=== PATIENT | male | born 1995 | race Caucasian/White ===

== ENCOUNTER 2017-02-26 20:47 | Emergency (ER) | payer OTHER ==
[2017-02-26 20:55] VITALS: BP 127/72; PULSE 82; RESP 16; TEMP 98.4; O2SAT 97
[2017-02-26] MEDS ORDERED: SKIN ADHESIVE (DERMABOND) 1 EACH TP ONE (21:47)
--- NOTE | 2017-02-26 21:56 | EDPHY ---
H & P Stated Complaint: l wrist lac vs broken glass HPI/ROS: CHIEF COMPLAINT: Laceration HISTORY OF PRESENT ILLNESS: Patient reports lifting a glass beer mug up to a shelf while at work this evening. The glass broke any sustained laceration to the left anterior wrist and superficially to the right middle and ring fingers. Minimally painful. Bleeding was stopped with pressure. No difficulty flexing or extending the fingers. No difficulty flexing or extending the wrist. No numbness or tingling. Denies that this was intentional. No other associated complaints or modifying factors TIME OF INJURY: Less than 2 hours prior to arrival TETANUS STATUS: Current less than 4 years ago REVIEW OF SYSTEMS: Ten systems reviewed and are negative unless otherwise noted in the HPI EXAMINATION General Appearance: Alert, no distress Head: normocephalic, atraumatic Cardiovascular: Pulses normal throughout. Symmetric radial pulses 2+. Brisk cap refill Neurological: A&O, sensory symmetric, strength symmetric. Good strength of the interossei. No wrist drop. Skin: Warm and dry, no rash. Three lacerations including 1.: Left wrist, anterior 1.25 cm, superficial. No exposure of the flexor tendons. No pulsatile blood flow. No foreign body. 2.: Right middle finger, distal phalanx, volar, 1 cm, superficial. No foreign body. No exposure of the flexor tendon. 3.: Right ring finger, volar, distal phalanx, superficial, 1 cm. No foreign body. No exposure of the flexor tendon. Neurovascular intact distal to all areas of laceration Extremities: Minimal tenderness of the lacerations of the left wrist and right fingers. Full range of motion all areas. Neurovascular intact distally. No tendon injury. DIFFERENTIAL DIAGNOSES: Including but not limited to superficial laceration, complex laceration, laceration with tendon injury, abrasion, foreign body MDM: 9:30 p.m. Superficial laceration of the left volar wrist and superficial lacerations of the right middle and ring fingers over the distal phalanx, volar. No foreign bodies by inspection. X-ray order the wrist. Tetanus up-to-date. Area has been anesthetized. Proceed with irrigation. 9:52 p.m. Superficial left wrist laceration that has been closed. He is neurovascular intact with no tendon injury. Superficial lacerations of the right middle and ring fingers that have been irrigated and covered with Dermabond skin adhesive. Discharged home stable condition. Follow up with worker's compensation [facility] for definitive care. 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 PROCEDURE: Laceration repair, 1. Consent: Verbal Location: Left wrist, volar Length of repair: 1.25 cm Complexity: Simple Layer involvement: Single Anesthesia: Local, 1% lidocaine plain. 5 mL Irrigation: Extensive Debridement: None Procedure description: Following good anesthesia, the wound was copiously irrigated. Wound bed was explored and there is no foreign body noted. Wound borders were approximated well with good hemostasis. Tolerated well without complication. Suture/Staple material: 5-0 Prolene, 2 simple interrupted sutures Wound care: Routine as discussed Suture/Staple removal: 7-10 Days PROCEDURE: Laceration repair, 2. Consent: Verbal Location: Right middle finger, distal phalanx, volar Length of repair: 1 cm superficial Complexity: Simple Layer involvement: Single Anesthesia: None Irrigation: Extensive Debridement: None Procedure description: Following good anesthesia, the wound was copiously irrigated. Wound bed was explored and there is no foreign body noted. Wound borders were approximated well with good hemostasis. Tolerated well without complication. Suture/Staple material: Dermabond skin adhesive Wound care: Routine as discussed PROCEDURE: Laceration repair, 3. Consent: Verbal Location: Right ring finger, distal phalanx, volar Length of repair: 1 cm superficial Complexity: Simple Layer involvement: Single Anesthesia: None Irrigation: Extensive Debridement: None Procedure description: Following good anesthesia, the wound was copiously irrigated. Wound bed was explored and there is no foreign body noted. Wound borders were approximated well with good hemostasis. Tolerated well without complication. Suture/Staple material: Dermabond skin adhesive Wound care: Routine as discussed SUTURE STAPLE REMOVAL: 7-10 days for left wrist sutures ED Precautions: Worsening pain. Erythema, edema, cyanosis, pallor, paresthesia or anesthesia. SUPERVISION: This patient was independently evaluated without direct examination by the attending physician. Case was discussed with attending physician. Source: Patient Exam Limitations: No limitations - Personal History Current Tetanus/Diphtheria Vaccine: Yes - Medical/Surgical History Hx Asthma: No Hx Chronic Respiratory Disease: No Hx Diabetes: No Hx Cardiac Disease: No Hx Renal Disease: No Hx Cirrhosis: No Hx Alcoholism: No Hx HIV/AIDS: No Hx Splenectomy or Spleen Trauma: No Other PMH: panic attacks, psoriatic arthritis - Social History Smoking Status: Current some day smoker Constitutional: Initial Vital Signs Temperature (C) 98.4 F 02/26/17 20:53 Heart Rate 82 02/26/17 20:53 Respiratory Rate 16 02/26/17 20:53 Blood Pressure 127/72 H 02/26/17 20:53 O2 Sat (%) 97 02/26/17 20:53 O2 Delivery Mode Room Air Allergies/Adverse Reactions: No Known Allergies Allergy (Unverified 02/26/17 20:55) Home Medications: Medication Instructions Recorded Etanercept [Enbrel] 50 mg SQ 02/26/17 Meloxicam 15 mg PO 02/26/17 Medical Decision Making - Diagnostics Imaging: I viewed and interpreted images myself Departure - Departure Disposition: Home, Routine, Self-Care Clinical Impression: Laceration of wrist Qualifiers: Encounter type: initial encounter Laterality: left Qualified Code(s): S61.512A - Laceration without foreign body of left wrist, initial encounter Laceration of finger Qualifiers: Encounter type: initial encounter Finger: ring finger Damage to nail status: without damage Foreign body presence: with foreign body Laterality: right Qualified Code(s): S61.224A - Laceration with foreign body of right ring finger without damage to nail, initial encounter Laceration of right middle finger Qualifiers: Encounter type: initial encounter Damage to nail status: without damage Foreign body presence: without foreign body Qualified Code(s): S61.212A - Laceration without foreign body of right middle finger without damage to nail, initial encounter Condition: Good Instructions: Care For Your Stitches (ED), Laceration (ED), Skin Adhesive Care (ED) Additional Instructions: 1. Daily wound care as discussed 2. Contact your rip machine operator as discussed 3. Follow up with worker's compensation Clinic as instructed by your employer Referrals: Lucita Odell DO [Doctor of Osteopathy] - As per Instructions Stand Alone Forms: Work Comp Follow Up
== END 2017-02-26 21:51 | disposition home or self-care (01) ==
PROC: 0HQEXZZ Repair Left Lower Arm Skin, External Approach (ICD-10-PCS; principal; 2017-02-26)
PROC: 0HQFXZZ Repair Right Hand Skin, External Approach (ICD-10-PCS; principal; 2017-02-26)
DX: S61.512A Laceration without foreign body of left wrist, initial encounter (principal); S61.224A Laceration with foreign body of right ring finger without damage to nail, initial encounter; S61.212A Laceration without foreign body of right middle finger without damage to nail, initial encounter; F17.200 Nicotine dependence, unspecified, uncomplicated; W25.XXXA Contact with sharp glass, initial encounter

== ENCOUNTER 2017-05-06 12:04 | Emergency (ER) | payer OTHER ==
--- NOTE | 2017-05-06 12:17 | CPEKG ---
Heart Rate: 75 RR Interval: 800 P-R Interval: 152 QRSD Interval: 86 QT Interval: 380 QTC Interval: 425 P Arthur: 75 QRS Arthur: 85 T Wave Arthur: 66 EKG Severity - OTHERWISE NORMAL ECG - EKG Impression: SINUS ARRHYTHMIA, RATE 64-89 Electronically Signed By: Butch Baum 06-May-2017 15:00:33
--- NOTE | 2017-05-06 12:17 | CPEKG ---
Heart Rate: 75 RR Interval: 800 P-R Interval: 152 QRSD Interval: 86 QT Interval: 380 QTC Interval: 425 P [place]: 75 QRS [place]: 85 T Wave [place]: 66 EKG Severity - OTHERWISE NORMAL ECG - EKG Impression: SINUS ARRHYTHMIA, RATE 64-89 Electronically Signed By: Butch Baum 06-May-2017 15:00:33
[2017-05-06 13:06] LABS: PLATELET COUNT 325 10^3/uL (150-400)
--- NOTE | 2017-05-06 14:10 | EDPHY ---
H & P Smoking Status: Former smoker Time Seen by Provider: 05/06/17 12:36 HPI/ROS: CHIEF COMPLAINT: Chest pain HISTORY OF PRESENT ILLNESS: 21-year-old male presents to the emergency department with left anterior chest pain. Pain is been a constant dull ache for the last 3 weeks which becomes more sharp in intensity when he does exertional activities. He does not feel short of breath. He denies pleuritic chest pain. No calf pain or swelling. No recent travel. He has never had this pain in the past. He has occasionally had tingling in his hands and feet as well. Has a strong family history on his father's side of coronary artery disease. His father of myocardial infarction at age 38. His paternal uncle also of myocardial infarction at age 41. Patient is a nonsmoker. He has no history of substance abuse. REVIEW OF SYSTEMS: Constitutional: No fever, no chills. Eyes: No double or blurry vision. ENT: No sore throat. Respiratory: No cough, no shortness of breath. Cardiac: chest pain. Gastrointestinal: No abdominal pain, vomiting or diarrhea. Genitourinary: No dysuria. Musculoskeletal: No neck or back pain. Skin: No rashes. Neurological: No headache. (SanazKamilla M) Past Medical/Surgical History: Negative (Sanaz,Kamilla M) Social History: Single (Kamilla Yo M) Physical Exam: General Appearance: Alert, no distress. Vital signs are stable. Eyes: Pupils equal and round. Extraocular motions are all intact. ENT: Mouth: Mucous membranes moist. Respiratory: No wheezing, rhonchi, or rales, lungs are clear to auscultation. Mild pain with palpation to the left anterior aspect of the chest wall just above the left nipple. No palpable crepitus or other bony abnormality. Cardiovascular: Regular rate and rhythm. Gastrointestinal: Abdomen is soft and nontender, no masses, no rebound or guarding, bowel sounds normal. Neurological: Alert and oriented x 3, cranial nerves II through XII grossly intact Skin: Warm and dry, no rashes. Musculoskeletal: Nontender to palpate along the cervical, thoracic or lumbar spine. Neck is supple. Extremities: Full range of motion and no peripheral edema. Psychiatric: Patient is oriented X 3, there is no agitation. (Sanaz,Kamilla M) Constitutional: Initial Vital Signs Temperature (C) 36.5 C 05/06/17 12:05 Heart Rate 84 05/06/17 12:05 Respiratory Rate 16 05/06/17 12:05 Blood Pressure 122/93 H 05/06/17 12:05 O2 Sat (%) 96 05/06/17 12:05 O2 Delivery Mode Room Air Allergies/Adverse Reactions: No Known Allergies Allergy (Unverified 05/06/17 12:08) Home Medications: Medication Instructions Recorded Etanercept [Enbrel] 50 mg SQ 02/26/17 Medical Decision Making - Diagnostics Imaging: I viewed and interpreted images myself - Diagnostics EKG Interpretation: 12-lead EKG interpreted by me; official reading is in trace master. My interpretation is sinus rhythm rate 75 with no ischemic changes. (Butch Baum) Imaging Results: Imaging Impressions Chest X-Ray 05/06/17 12:58 Impression: Hyperaeration, which can be seen with asthma. Otherwise, no evidence for acute cardiopulmonary abnormality. ED Course/Re-evaluation: 21-year-old male presents to the emergency department with chest pain. EKG was unremarkable. Troponin and D-dimer were negative. Laboratory studies were all unremarkable. Case was discussed with Dr. Butch Baum, secondary supervising physician, who did not directly evaluate the patient but agrees with treatment and plan. Chest x-ray was unremarkable. Patient was encouraged to have close follow-up with Cardiology as an outpatient. I do not think further imaging studies are indicated emergency department today. Encouraged her to take anti-inflammatories. He return if he has any recurring chest pain or if he feels worse in any way. (Kamilla Yo) Differential Diagnosis: Chest pain including but not limited to myocardial ischemia, pulmonary embolus, chest wall pain, pleural inflammation and pulmonary infectious causes. (Kamilla Yo) - Data Points Laboratory Results: Laboratory Results 05/06/17 12:40 05/06/17 12:40 05/06/17 05/06/17 05/06/17 12:40 12:40 12:40 WBC 5.02 10^3/uL 10^3/uL (3.80-9.50) RBC 6.45 10^6/uL H 10^6/uL (4.40-6.38) Hgb 19.5 g/dL H g/dL (13.7-17.5) Hct 53.1 % H % (40.0-51.0) MCV 82.3 fL fL (81.5-99.8) MCH 30.2 pg pg (27.9-34.1) MCHC 36.7 g/dL g/dL (32.4-36.7) RDW 12.1 % % (11.5-15.2) Plt Count 325 10^3/uL 10^3/uL (150-400) MPV 8.7 fL fL (8.7-11.7) Neut % (Auto) 47.6 % % (39.3-74.2) Lymph % (Auto) 41.8 % % (15.0-45.0) [place] % (Auto) 8.0 % % (4.5-13.0) Eos % (Auto) 1.8 % % (0.6-7.6) Baso % (Auto) 0.6 % % (0.3-1.7) Nucleat RBC Rel Count 0.0 % % (0.0-0.2) Absolute Neuts (auto) 2.39 10^3/uL 10^3/uL (1.70-6.50) Absolute Lymphs (auto) 2.10 10^3/uL 10^3/uL (1.00-3.00) Absolute Monos (auto) 0.40 10^3/uL 10^3/uL (0.30-0.80) Absolute Eos (auto) 0.09 10^3/uL 10^3/uL (0.03-0.40) Absolute Basos (auto) 0.03 10^3/uL 10^3/uL (0.02-0.10) Absolute Nucleated RBC 0.00 10^3/uL 10^3/uL (0-0.01) Immature Gran % 0.2 % % (0.0-1.1) Immature Gran # 0.01 10^3/uL 10^3/uL (0.00-0.10) D-Dimer < 0.27 ug/mLFEU ug/mLFEU (0.00-0.50) Sodium 141 mEq/L mEq/L (134-144) Potassium 4.4 mEq/L mEq/L (3.5-5.2) Chloride 100 mEq/L mEq/L (97-110) Carbon Dioxide 26 mEq/l mEq/l (22-31) Anion Gap 15 mEq/L mEq/L (8-16) BUN 18 mg/dL mg/dL (7-23) Creatinine 1.1 mg/dL mg/dL (0.7-1.3) Estimated GFR > 60 Glucose 82 mg/dL mg/dL (70-100) Calcium 10.3 mg/dL mg/dL (8.5-10.4) Troponin I < 0.012 ng/mL ng/mL (0.000-0.034) Departure - Departure Disposition: Home, Routine, Self-Care Clinical Impression: Chest pain Qualifiers: Chest pain type: unspecified Qualified Code(s): R07.9 - Chest pain, unspecified Condition: Good Instructions: Chest Pain (ED) Additional Instructions: Follow-up with typing office worker as discussed this week. Tell them that you were seen in the emergency department and that you have a family history of coronary artery disease. Activity as tolerated. Ibuprofen 600 mg every 8 hours as needed for pain. Referrals: Antonio Eddy MD [Primary Care Provider] - As per Instructions Kvng Lackey MD [Medical Doctor] - As per Instructions (Janitorial Tech on-call)
[2017-05-06 14:24] VITALS: BP 123/80; PULSE 73; RESP 14; TEMP 99.1; O2SAT 94
== END 2017-05-06 14:23 | disposition home or self-care (01) ==
DX: R07.9 Chest pain, unspecified (principal); Z87.891 Personal history of nicotine dependence